=== PATIENT | female | born 1980 | race Caucasian/White ===

== ENCOUNTER 2021-05-27 08:23 | Inpatient (IN) | payer OTHER, SELFPAY ==
[2021-05-27 09:02] VITALS: BMI 31.3
[2021-05-27 09:27] LABS: #Eosinphils 0.1 10x3/uL (0.0-0.5); #Monocytes 0.9 10x3/uL (0.0-1.1); #Neutrophils 8.3 10x3/uL (1.5-8.4); %Basophils 0.2 % (0.0-2.0); %Eosinophils 0.5 % (0.0-6.0); %Lymphocytes 17.1 % (18.0-47.0); %Monocytes 7.6 % (0.0-10.0); Hemoglobin 11.9 g/dL (12.0-15.5); Mean Corpuscular HGB CONC 32.7 g/dL (32.0-36.0); Mean Corpuscular Hemoglobin 30.4 pg (27.0-33.0); Mean Corpuscular Volume 92.9 fl (81.6-98.3); Mean Platelet Volume 10.7 fl (7.4-10.4); Platelet Count 232 10x3/uL (150-450); RBC Distribution Width 13.7 % (11.5-14.5); Red Blood Cell (RBC) Count 3.92 10x6/uL (3.90-5.03); White Blood Cell (WBC) Count 11.2 10x3/uL (3.5-10.5)
[2021-05-27 09:44] LABS: Fetal Membranes Rupture RUPTURE DETECTED (No Rupture)
[2021-05-27 09:56] LABS: ALT (SGPT) 14 U/L (8-55); AST (SGOT) 17 U/L (5-34); Albumin 3.3 g/dL (3.5-5.0); Alkaline Phosphatase 112 U/L (40-110); Anion Gap 14 mmol/L (10-20); BUN (Urea Nitrogen) 6 mg/dL (7.0-18.7); Bilirubin, Total 0.4 mg/dL (0.2-1.2); Calc. Creatinine Clearance 168 mL/min (70-130); Calcium 8.8 mg/dL (7.8-10.44); Carbon Dioxide 20 mmol/L (22-29); Chloride 108 mmol/L (98-107); Glucose 93 mg/dL (70-105); Potassium 3.5 mmol/L (3.5-5.1); Protein, Total 6.3 g/dL (6.0-8.3); Sodium 138 mmol/L (136-145)
[2021-05-27 10:10] LABS: Creatinine, Urine 52.23 mg/dL (47-110)
[2021-05-27] MEDS ORDERED: Ibuprofen 800 MG TAB PO PRN (10:59)
[2021-05-27] MEDS ORDERED: Carboprost 250 MCG/ML AMP IM PRN (10:59)
[2021-05-27] MEDS ORDERED: HYDROcodone/Acetaminophen 5/325 mg Tablet PO PRN ×4 (10:59→21:14)
[2021-05-27] MEDS ORDERED: Promethazine HCl 25 MG/ML VIAL IM PRN (10:59)
[2021-05-27] MEDS ORDERED: Misoprostol 200 MCG TAB PR PRN (10:59)
[2021-05-27] MEDS ORDERED: hydrALAZINE 20 MG/ML VIAL SLOW IVP PRN ×2 (10:59→21:14)
[2021-05-27] MEDS ORDERED: Diphenoxylate HCl/Atropine Tablet PO PRN ×2 (10:59)
[2021-05-27] MEDS ORDERED: Ondansetron PF 4 MG/2 ML Vial IVP PRN ×2 (10:59→21:14)
[2021-05-27] MEDS ORDERED: Lidocaine 1% (PF) 30 ML VIAL SC PRN (10:59)
[2021-05-27] MEDS ORDERED: NS w/ Oxytocin 30 units 500 ML IV SCH ×3 (11:00→22:00)
[2021-05-27 11:16] LABS: Hemoglobin 11.9 g/dL (12.0-15.5); Mean Corpuscular HGB CONC 32.2 g/dL (32.0-36.0); Mean Corpuscular Hemoglobin 30.1 pg (27.0-33.0); Mean Corpuscular Volume 93.2 fl (81.6-98.3); Mean Platelet Volume 11.2 fl (7.4-10.4); Platelet Count 225 10x3/uL (150-450); RBC Distribution Width 13.9 % (11.5-14.5); Red Blood Cell (RBC) Count 3.96 10x6/uL (3.90-5.03); White Blood Cell (WBC) Count 10.6 10x3/uL (3.5-10.5)
[2021-05-27 11:46] LABS: Hep B Surf Ag Non-Reactive S/CO (NonReactive); Syphilis Antibody Nonreactive (Nonreactive); Syphilis Antibody Index 0.06 S/CO (<1.00 Non-Reactive)
[2021-05-27 12:07] LABS: HBSAg Index 0.17 S/CO (0-0.99)
[2021-05-27] MEDS ORDERED: NS w/ Oxytocin 30 units 500 ML ONE (12:25)
[2021-05-27 15:03] LABS: SARS-CoV-2 NAA Rapid Test Not Detected (NotDetected)
[2021-05-27] MEDS ORDERED: Bisacodyl 10 MG SUPP PR PRN (21:14)
[2021-05-27] MEDS ORDERED: Boostrix 0.5 ML (Tdap) VIAL IM ONE (21:14)
[2021-05-27] MEDS ORDERED: Benzocaine-Menthol 82.5 ML CAN TOP PRN (21:14)
[2021-05-27] MEDS ORDERED: Milk Of Magnesia 30 ML UDCUP PO PRN (21:14)
[2021-05-27] MEDS ORDERED: Docusate Calcium (SURFAK) 240 MG CAP PO SCH (21:45)
[2021-05-27] MEDS ORDERED: Misoprostol 200 MCG TAB VAG PRN (21:45)
[2021-05-27] MEDS: Docusate Calcium (SURFAK) 240 MG CAP PO SCH (21:46)
[2021-05-27] MEDS: Ibuprofen 800 MG TAB PO SCH (21:46)
[2021-05-28] MEDS: Ibuprofen 800 MG TAB PO SCH ×3 (05:03→21:46)
[2021-05-28] MEDS ORDERED: Levothyroxine Sodium 75 MCG TAB PO SCH (06:00)
[2021-05-28] MEDS ORDERED: Liothyronine Sodium 5 MCG TAB PO SCH (06:00)
[2021-05-28] MEDS: Ferrous Sulfate 325 MG TAB PO SCH ×2 (07:18→17:50)
[2021-05-28] MEDS: Docusate Calcium (SURFAK) 240 MG CAP PO SCH (08:26)
[2021-05-28] MEDS ORDERED: Prenatal Vitamin 1 TAB PO SCH (09:00)
[2021-05-28 20:59] VITALS: BP 136/90; TEMP 98.4
== END 2021-05-28 22:20 | disposition home or self-care (01) | DRG 807 ==
LOC: CSHLD/OP 08:23 → CSHLD 11:06 → CSHPP 20:50
PROVIDERS: ADMIT Student in an Organized Health Care Education/Training Program; ATTEND Student in an Organized Health Care Education/Training Program
PROC: 10E0XZZ Delivery of Products of Conception, External Approach (ICD-10-PCS; principal; 2021-05-27)
PROC: 0W8NXZZ Division of Female Perineum, External Approach (ICD-10-PCS; 2021-05-27)
DX: O80 Encounter for full-term uncomplicated delivery (principal); Z37.0 Single live birth; Z3A.38 38 weeks gestation of pregnancy; Z20.822 Contact with and (suspected) exposure to COVID-19
CPT/HCPCS: 80053; 82570; 84112; 84156; 85025; 86780; 86850; 86900; 86901; 87340; 99285; J2590; U0002